=== PATIENT | male | born 1950 | race Caucasian/White ===

== ENCOUNTER → 2018-11-26 | Outpatient (CLI) | payer MEDICARE ==
--- NOTE | 2018-11-26 11:40 | RAD ---
PQRS Compliance Statement: One or more of the following individualized dose reduction techniques were utilized for this examination: 1. Automated exposure control 2. Adjustment of the mA and/or kV according to patient size 3. Use of iterative reconstruction technique CT chest without contrast December 06, 2018 INDICATION: Right upper lobe lung mass COMPARISON: CT chest June 28, 2018, CT chest December 27, 2018 TECHNIQUE: Multiple axial CT images of the chest were obtained without intravenous contrast. Coronal and sagittal reformats are provided. FINDINGS: Thyroid gland is normal in appearance. There are no pathologically enlarged axillary, mediastinal or hilar lymph nodes. Heart size within normal limits. There is no pericardial effusion. Thoracic aorta is normal in course and caliber. Interval decrease in size of a right upper lobe pulmonary parenchymal mass previously measuring 7.2 x 5.4 cm and currently measuring 4.8 x 3.4 cm and measured in similar dimensions. Subpleural nodule in the superior segment right lower lobe is stable measuring 8 mm. There are no new or enlarging solid noncalcified pulmonary nodules. Moderate centrilobular pulmonary emphysema is similar. No pleural effusions or pulmonary vascular congestion. No pneumothorax. The upper abdomen appear stable. No suspicious osseous abnormality is identified. IMPRESSION: Interval decrease in size of a dominant right upper lobe mass previously measuring 7.2 x 5.4 cm and currently measuring 4.8 x 3.4 cm. No new or enlarging thoracic lymphadenopathy. Electronically signed by: Raquel Cevallos MD (11/26/2018 11:37 AM) [id number]
== END | disposition home or self-care (01) ==
LOC: CT 10:38
PROVIDERS: ATTEND Internal Medicine Critical Care Medicine
DX: R91.8 Other nonspecific abnormal finding of lung field (principal)
CPT/HCPCS: 71250

== ENCOUNTER → 2019-03-28 | Outpatient (CLI) | payer MEDICARE ==
--- NOTE | 2019-03-28 12:42 | KCIC ---
PQRS Compliance statement: One or more of the following individualized dose reduction techniques were utilized for this examination: 1. Automated exposure control. 2. Adjustment of the mA and/or kV according to patient size. 3. Use of iterative reconstruction technique. Indication:Lung mass. Follow-up. TECHNIQUE: CT chest without IV contrast with multiplanar reformats. COMPARISON: 11/26/2018 FINDINGS: Heart is normal in size. No pericardial or pleural effusion. Clear neck base. No enlarged axillary or mediastinal lymph nodes. Evaluation of hilar lymphadenopathy is limited due to lack of IV contrast. Radiology spiculated opacity is seen in the lateral aspect of the right upper lobe approximately measuring 2.6 x 3.6 cm, previously 3.6 x 4.4 cm on sagittal view. Mild emphysema. New 1 cm patchy opacity seen in the subpleural posterior segment of the left lower lobe (series 6 image 242). Visualized noncontrast sections through the liver, spleen, pancreas, adrenals and upper kidneys are within normal limits. No suspicious bony lesion. IMPRESSION: 1. Interval decrease in the size of spiculated opacity in the right upper lobe which may represent posttreatment atelectasis although residual or recurrent malignancy is not ruled out. Attention on follow-up. 2. New posterior basal segment left lower lobe 1 cm opacity. Short-term follow-up recommended. Electronically signed by: Isaac Sainz DO (03/28/2019 12:39 PM) [facility]
== END | disposition home or self-care (01) ==
LOC: KCIC CT 11:14
PROVIDERS: ATTEND Internal Medicine Critical Care Medicine
DX: J43.9 Emphysema, unspecified (principal); R91.1 Solitary pulmonary nodule; Z87.891 Personal history of nicotine dependence
CPT/HCPCS: 71250

== ENCOUNTER → 2019-08-01 | Outpatient (CLI) | payer MEDICARE ==
--- NOTE | 2019-08-01 13:11 | KCIC ---
EXAM: CT Chest without IV contrast CLINICAL HISTORY: Lung mass. Follow-up. COMPARISON: 03/28/2019, 11/26/2018 TECHNIQUE: CT of the chest without intravenous contrast. Axial, coronal and sagittal reformatted images were generated. ---PQRS compliance statement - One or more of the following individualized dose reduction techniques were utilized for this study: 1. Automated exposure control 2. Adjustment of the mA and/or kV according to patient size 3. Use of iterative reconstruction technique--- FINDINGS: Lack of intravenous contrast limits evaluation of solid organs, vasculature, and lymph nodes. Chest: Heart is not enlarged. No pericardial effusion. No pleural effusion or pneumothorax. Thyroid is unremarkable. A 1.2 x 0.9 cm precarinal lymph node is seen. Additional prominent mediastinal lymph nodes are noted. No definite hilar lymphadenopathy by size criteria. No axillary lymphadenopathy. Bilateral emphysematous changes are seen. A spiculated right upper lobe mass measures 3.6 x 2.3 cm, previously 3.9 x 2.6 cm when remeasured in a similar fashion. The previously seen left lower lobe 1 cm opacity has since resolved. Visualized Upper abdomen: Upper abdomen is grossly unremarkable. Bones: Mild height loss of the L1 vertebral body, stable. No aggressive osseous lesion. IMPRESSION: 1. The spiculated right upper lobe lung mass has mildly decreased in size. Recommend close attention on follow-up to exclude residual or recurrent malignancy. 2. The previously seen left lower lobe 1 cm opacity has since resolved. Electronically signed by: José Miguel Avalos MD (08/01/2019 1:08 PM) [id number]
== END ==
LOC: KCIC CT 08:07
PROVIDERS: ATTEND Internal Medicine Critical Care Medicine
DX: J43.8 Other emphysema (principal); R91.8 Other nonspecific abnormal finding of lung field
CPT/HCPCS: 71250

== ENCOUNTER → 2019-08-15 | Outpatient (CLI) | payer MEDICARE ==
--- NOTE | 2019-08-15 12:53 | RAD ---
EXAM: PET/CT SKULL BASE TO MID THIGH. HISTORY: Lung mass. COMPARISON: 08/01/2019. TECHNIQUE: CT was performed from the skull base through the mid thighs for the purposes of attenuation correction. 15.4 mCi F-18 fluorodeoxyglucose (FDG) was administered intravenously. After an uptake period, positron emission tomography was performed from the skull base through the mid thighs. The PET and CT data were fused and interpreted in combination a dedicated workstation. Blood glucose level was 89 mg/dL at the time of FDG administration. FINDINGS: A scarlike mass in the right upper lobe demonstrates maximum SUV 3.2. It spans 3.9 x 2.3 cm. The largest nodular regions measure only 1 cm in thickness, however. There is no abnormal hypermetabolism in the mediastinal or hilar lymph nodes. There is no evidence of distant metastatic disease. Additional CT findings include moderate centrilobular emphysema in the apices. IMPRESSION: 1. A 3.9 cm scarlike mass in the right upper lobe demonstrates some mild hypermetabolism with maximum SUV 3.2. Inflammatory or neoplastic etiologies could produce this appearance is indeterminate. It appears of decreased in size over time since 06/28/2018, favoring postinflammatory etiology. Ongoing follow-up is recommended.
== END | disposition home or self-care (01) ==
LOC: PETSC 07:11
PROVIDERS: ATTEND Internal Medicine Critical Care Medicine
DX: J43.2 Centrilobular emphysema (principal); R91.8 Other nonspecific abnormal finding of lung field
CPT/HCPCS: 78815; A9552

== ENCOUNTER → 2020-01-28 | Outpatient (CLI) | payer MEDICARE ==
--- NOTE | 2020-01-28 12:28 | KCIC ---
MR of the right shoulder HISTORY: Right shoulder pain. TECHNIQUE: Routine multiplanar sequences are obtained. FINDINGS: The acromioclavicular joint is degenerative with mild undersurface mass effect. Rotator cuff tendon demonstrates hyperintense signal. No gross thickening of the supraspinatus or infraspinatus tendons. Linear full-thickness tear across the anterior supraspinatus footplate attachment measuring 5-10 mm AP diameter, without retraction. Deep partial articular side tearing extending through the cuff posterior to this, through the anterior infraspinatus tendon. Subscapularis tendinosis with partial tearing. Trace fluid in the subdeltoid bursa. No advanced rotator cuff muscle atrophy. No significant glenohumeral joint effusion. Mild glenohumeral joint DJD. Mild signal throughout the labrum compatible with degeneration and/or degenerative tearing. No para labral cyst. The biceps tendon is small in caliber, may just due to a developmental variant, versus chronic tendinosis or tearing, but the visualized fibers appear to be grossly intact. No acute fracture. No aggressive bone destruction. No acute soft tissue abnormality. There is very limited visualization of the right upper lung, with some abnormal signal. Correlation with prior chest CT of 08/01/2019 demonstrates a right upper lobe pulmonary mass which presumably corresponds with this finding. This demonstrates overall similar location and morphology. IMPRESSION: 1. Full-thickness on retracted rotator cuff tear of the anterior supraspinatus footplate, with deep articular surface tearing through the more posterior rotator cuff. Partial subscapularis tendon tear. 2. Circumferential labral degeneration and/or degenerative tearing. 3. Small biceps tendon caliber, could just be normal variant, versus chronic tendinosis or tearing. 4. Limited visualization of abnormal signal in right upper lobe, appears to correlate with the right upper lobe mass described on CT chest of 08/01/2019. Note this is not a diagnostic evaluation of the lung, and further evaluation would require follow-up CT of the chest. Electronically signed by: Cosmo Harris MD (01/28/2020 12:25 PM) [id number]
== END | disposition home or self-care (01) ==
LOC: KCIC MRI 07:40
PROVIDERS: ATTEND Orthopaedic Surgery Sports Medicine
DX: M75.101 Unspecified rotator cuff tear or rupture of right shoulder, not specified as traumatic (principal); M19.011 Primary osteoarthritis, right shoulder
CPT/HCPCS: 73221

== ENCOUNTER → 2020-06-29 | Outpatient (CLI) | payer MEDICARE ==
[~2020-06-29] MED LIST: CONTRAST GIVEN. MC PRN; IOHEXOL 300 MG/ML 100ML VIAL. IV ONE; TAMS0.4C97 PO
--- NOTE | 2020-06-29 09:03 | KCIC ---
Examination: CT chest with IV contrast HISTORY: History of follow-up lung abnormality, history of smoking COMPARISON: 08/01/2019 TECHNIQUE: Axial CT images of the chest were performed with IV contrast. Coronal and sagittal reformats are performed Exposure: One or more of the following individualized dose reduction techniques were utilized for this examination: 1. Automated exposure control 2. Adjustment of the mA and/or kV according to patient size 3. Use of iterative reconstruction technique FINDINGS: The visualized thyroid gland grossly appears unremarkable. Central airways are patent. Heart size grossly appears unremarkable . The caliber of the aorta grossly appears unremarkable. No radiologically significant mediastinal lymphadenopathy. Severe bilateral lung emphysematous changes again identified. There is linear airspace opacity identified in the right upper lobe of the lung measuring 3.5 cm similar to prior exam. The visualized liver, spleen, adrenals grossly appears unremarkable. Mild degenerative changes thoracic spine. IMPRESSION: 1. Linear opacity identified in the right upper lobe of the lung is unchanged compared to prior exam. 2. Severe bilateral lung emphysematous changes. Electronically signed by: Benton Kendrick MD (06/29/2020 9:01 AM) [id number]
== END ==
LOC: KCIC CT 08:12
PROVIDERS: ATTEND Family Medicine
DX: R91.8 Other nonspecific abnormal finding of lung field (principal); J43.9 Emphysema, unspecified
CPT/HCPCS: 71260; Q9967